=== PATIENT | female | born 1930 | race Caucasian/White ===

== ENCOUNTER 2016-07-11 17:27 | Emergency (ER) | payer OTHER ==
[~2016-07-11] VITALS: Ht 152.4 cm; Wt 52.2 kg
[2016-07-11 17:38] VITALS: BP_SYST 150
[2016-07-11] MEDS ORDERED: KETOROLAC TROMETHAMINE 30 MG VIAL IM ONE (19:15)
[2016-07-11] MEDS ORDERED: MORPHINE 2 MG/ML INJ. SYRINGE IM ONE (19:15)
[2016-07-11] MEDS ORDERED: ONDANSETRON 4 MG ODT TAB PO ONE (19:15)
[2016-07-12 03:00] VITALS: BP_SYST 101
== END 2016-07-12 03:00 ==
LOC: SED 17:27
DX: J18.9 Pneumonia, unspecified organism (principal); I10 Essential (primary) hypertension; M25.562 Pain in left knee; Z96.89 Presence of other specified functional implants; Z86.79 Personal history of other diseases of the circulatory system
CPT/HCPCS: 29505; 73564; 96372; 99285; J1885; J2270; Q0162

== ENCOUNTER 2016-11-11 10:58 | Outpatient (CLI) | payer OTHER | END 2016-11-11 17:53 | disposition home or self-care (01) | LOC: SRD 10:58 | PROVIDERS: ATTEND Family Medicine | DX: S82.002A Unspecified fracture of left patella, initial encounter for closed fracture (principal); R60.0 Localized edema; X58.XXXA Exposure to other specified factors, initial encounter; Y93.89 Activity, other specified; Y92.89 Other specified places as the place of occurrence of the external cause; Y99.8 Other external cause status | CPT/HCPCS: 93971 ==